=== PATIENT | female | born 1955 | race Hispanic/Latino ===

== ENCOUNTER 2019-06-02 09:25 | Day surgery (SDC) | payer OTHER, MEDICARE ==
[2019-06-02 10:00] LABS: Basophils % (Auto) 0.7 % (0.0-1.8); Eosinophils # (Auto) 0.2 K/mm3 (0.0-0.4); Eosinophils % (Auto) 5.7 % (0.0-4.3); Hematocrit 40.6 % (30.3-42.9); Hemoglobin 13.8 gm/dl (10.1-14.3); Lymphocytes # (Auto) 0.8 K/mm3 (1.2-5.4); Mean Corpuscular HGB Conc 34 % (30-34); Mean Corpuscular Volume 98 fl (79-97); Monocytes # (Auto) 0.4 K/mm3 (0.0-0.8); Platelet Count 236 K/mm3 (140-440); Red Blood Count 4.15 M/mm3 (3.65-5.03); Red Cell Distribution Width 14.4 % (13.2-15.2)
[2019-06-02] MEDS ORDERED: SODIUM CHLORIDE 0.9% 500 ML 500 ML IV SCH (10:00)
[2019-06-02] MEDS ORDERED: SODIUM CHLORIDE 0.9% 500 ML 500 ML ONE (10:05)
[2019-06-02 10:13] LABS: INR 0.95 (0.87-1.13); Partial Thromboplastin Time 26.5 Sec. (24.2-36.6)
[2019-06-02 10:19] LABS: BUN/Creatinine Ratio 23; Blood Urea Nitrogen 7 mg/dL (7-17); Hemolysis Index 31
--- NOTE | 2019-06-02 10:27 | Short Stay Summary ---
Short Stay Documentation Date of service: 06/02/19 - History Principal diagnosis: Venous compression Past Medical History: other (venous hypertension) Past Surgical History: Other (superficial venous treatments) Social history: no significant social history - Allergies and Medications Current Medications: Allergies No Known Allergies Allergy (Unverified 06/02/19 09:25) Home Medications Medication Instructions Recorded Confirmed Last Taken Type Aspirin EC 81 mg PO DAILY 06/02/19 06/02/19 06/01/19 History 81 mg Rosuvastatin Calcium 40 mg PO DAILY 06/02/19 06/02/19 05/24/19 History 40 mg Active Medications Cefazolin Sodium 2 gm/ Sodium (Chloride) 100 mls @ 200 mls/hr IV ONCE ONE; Protocol Stop: 06/02/19 10:11 - Physical exam General appearance: no acute distress Integumentary: no rash HEENT: Atraumatic Lungs: Normal air movement Breasts: deferred Heart: Regular rate Gastrointestinal: normal Female Genitourinary: deferred Rectal Exam: deferred Extremities: no ischemia Neurological: Normal gait, Normal speech - Brief post op/procedure progress note Date of procedure: 06/02/19 Pre-op diagnosis: venous compression, pelvic congestion Post-op diagnosis: same Procedure: left gonadal vein embolization. BLE venogram with stent placement Anesthesia: local Surgeon: MARIAELENA MONROY Estimated blood loss: minimal Pathology: none Condition: stable - Disposition Condition at discharge: Good Disposition: DC-01 TO HOME OR SELFCARE Short Stay Discharge Plan Activity: advance as tolerated Weight Bearing Status: Weight Bear as Tolerated Diet: regular Wound: keep clean and dry, per your surgeon's advice Follow up with: PRIMARY CAREMD [Primary Care Provider] - 7 Days
[2019-06-02] MEDS ORDERED: ceFAZolin/Water 2 GM/20 ML 2 GM/20 ML SYRINGE IV SCH (11:00)
[2019-06-02] MEDS ORDERED: HEPARIN 10,000 UNITS/10 ML VIAL ONE (11:00)
[2019-06-02] MEDS ORDERED: HEPARIN/NS 5000 UNIT/500ML 1,000 ML IR ONE (11:00)
[2019-06-02] MEDS ORDERED: ceFAZolin/Water 2 GM/20 ML 2 GM/20 ML SYRINGE IV ONE (11:01)
[2019-06-02] MEDS ORDERED: VERAPAMIL 5 MG/2 ML INJ ONE (11:01)
[2019-06-02] MEDS ORDERED: NITROGLYCERIN SYRINGE 0 ML ONE (11:01)
[2019-06-02] MEDS ORDERED: MIDAZOLAM 2 MG/2 ML INJ ONE (11:02)
[2019-06-02] MEDS ORDERED: fentaNYL 100 MCG/2 ML INJ ONE (11:02)
[2019-06-02] MEDS: LIDOCAINE (2%) 20 MG/1 ML VIAL 20 ML MDV INFILTRATI ONE ×2 (11:31→11:33)
--- NOTE | 2019-06-02 13:26 | Operative Report ---
Operative Report Operative Report: Exam: Bilateral lower extremity venogram with placement, left gonadal venogram with embolization Clinical indication: Patient with venous hypertension secondary to extrinsic compression of her iliac veins from the overlying arteries, patient with pelvic congestion secondary to dilation and near complete stasis of flow within the left gonadal vein Date: 06/02/2019 Procedure: Following an explanation of the risks, benefits and alternatives; written informed consent was obtained. The patient was brought to the angiographic suite and placed in supine position on the examination table. Ultrasound evaluation of her legs demonstrated patent femoral veins proximally. The patient's legs were prepped and draped in the usual sterile fashion. 1% lidocaine was used for anesthesia. Under ultrasound guidance, the right proximal femoral vein was cannulated with a 7 cm 18-gauge needle. A 0.035 guidewire was advanced centrally. The needle was removed and a 5 Prydeinig sheath placed. Access to the proximal left femoral vein was obtained in a similar fashion in the trocar the 5 Prydeinig sheath placed. A C2 Cobra catheter was advanced over guidewire through the right sheath. The guidewire and catheter were advanced under fluoroscopy to the level of the left renal vein. Selective cannulation of left renal vein was performed. The guidewire was exchanged for 0.035 Glidewire and the Glidewire advanced into the proximal left gonadal vein. Together the guidewire and catheter were then advanced to the pelvic brim. Contrast was injected which again demonstrates dilation of the left gonadal vein with prompt opacification of numerous pelvic collaterals which crossed the midline. There is drainage of these collaterals through the internal iliac veins bilaterally. With a catheter positioned in the distal left gonadal vein. Embolization was performed using [employer] interlock coils from distal to proximal. Post embolization imaging demonstrated stasis of flow with non-opacification of the pelvic varicosities. The 0.035 guidewire was advanced through the catheter and the catheter then removed from the left gonadal vein and left renal vein. The guidewire was advanced to the IVC and the catheter removed. The 5 Prydeinig sheath and 5 Prydeinig trocar were upsized over the guidewires to 10 Prydeinig sheaths bilaterally. Contrast was injected through both sheaths simultaneously for anatomic localization. This against demonstrates previously noted multifocal stenoses within the bilateral common iliac vein and bilateral external iliac veins. A 12 mm x 160 mm Venovo stent was advanced through the right sheath, a 12 mm x 160 mm Venovo stent was advanced through the left sheath. The stents were deployed kissing fashion to extend from the IVC to the external iliac veins bilaterally. The stents were deployed in such a way as to treat all the lesions simultaneously. Post stent placement imaging demonstrated a reduction of all stenoses to less than 10%. The catheters, guidewires and sheaths were removed and hemostasis achieved using manual compression. Compression dressings were then applied. The patient tolerated the procedure well. There were no immediate postprocedural complications. Conscious sedation was performed under the guidance of radiologic nursing. Continuous cardiopulmonary monitoring was utilized. Impression: 1) Left gonadal venogram demonstrating dilation the left gonadal vein to greater than 5 mm in diameter with prompt opacification of numerous pelvic processes which extend across the midline. 2) Embolization of the left gonadal vein as described with stasis of flow. 3) Bilateral lower extremity venogram performed to the sheath simultaneously demonstrated multi focal stenoses within the common iliac veins and external iliac veins bilaterally as noted on prior diagnostic venogram. 4) Treatment of these lesions using kissing 12 mm x 160 mm Venovo stents with residual less than 10% stenosis.
[2019-06-02 13:36] VITALS: BP 129/69
== END 2019-06-02 14:49 | disposition home or self-care (01) ==
LOC: CATHLABREC 09:25
PROVIDERS: ATTEND Radiology Diagnostic Radiology
DX: I87.1 Compression of vein (principal); Z79.899 Other long term (current) drug therapy; Z87.891 Personal history of nicotine dependence; Z79.82 Long term (current) use of aspirin; Z90.49 Acquired absence of other specified parts of digestive tract; Z87.440 Personal history of urinary (tract) infections; Z98.890 Other specified postprocedural states; Z79.01 Long term (current) use of anticoagulants
CPT/HCPCS: 36415; 37238; 37239; 37241; 75822; 76937; 80048; 85025; 85610; 85730; 99156; 99157; C1769; C1876; C1887; C1894; J0690; J1644; J2250; J3010; J7040; Q9967